=== PATIENT | male | born 1965 | race Caucasian/White ===

== ENCOUNTER 2018-02-23 15:39 | Emergency (ER) | payer SELFPAY ==
[~2018-02-23] VITALS: Ht 165.1 cm; Wt 115.0 kg
[~2018-02-23 15:39] MED LIST: TAMS5CAP PO; VIAG100T PO
[2018-02-23 15:56] VITALS: BP 119/70; PULSE 81; RESP 16; TEMP 98.6; O2SAT 98
[2018-02-23] MEDS ORDERED: SODIUM CHLORIDE 0.9% FLUSH 10 ML FLUSH IV FLUSH PRN (17:30)
[2018-02-23] MEDS ORDERED: KETOROLAC TROMETHAMINE 30 MG/ML (IVP) VIAL IVP ONE (17:30)
--- NOTE | 2018-02-23 17:33 | PD ---
HPI Chief Complaint: Abdominal Pain Time Seen by Provider: 17:29 Travel History International Travel<30 days: No Contact w/Intl Traveler<30days: No Traveled to known affect area: No History of Present Illness HPI Patient is a 52-year-old male presents emergency department for evaluation of left lower quadrant abdominal pain radiating into the left upper quadrant. States is sharp in quality started last night and became fairly constant this afternoon. He states he has a history of diverticulitis but this feels somewhat different. Very painful, no nausea no vomiting no diarrhea no constipation or blood in the stool. PFSH Past Medical History Diminished Hearing: No Social History Alcohol Use: No Tobacco Use: Yes Substance Use: Yes Allergies-Medications (Allergen,Severity, Reaction): Coded Allergies: No Known Allergies (Unverified Adverse Reaction, Unknown, 02/23/18) Reported Meds & Prescriptions Reported Meds & Active Scripts Active Flomax (Tamsulosin HCl) 0.4 Mg Cap 0.8 Mg PO HS Viagra (Sildenafil Citrate) 100 Mg Tab 100 Mg PO DAILY Review of Systems Except as stated in HPI: all other systems reviewed are Neg Physical Exam Narrative GENERAL: Well-developed well-nourished no obvious distress morbidly obese. SKIN: Focused skin assessment warm/dry. HEAD: Atraumatic. Normocephalic. EYES: Pupils equal and round. No scleral icterus. No injection or drainage. ENT: No nasal bleeding or discharge. Mucous membranes pink and moist. NECK: Trachea midline. No JVD. CARDIOVASCULAR: Regular rate and rhythm. No murmur appreciated. RESPIRATORY: No accessory muscle use. Clear to auscultation. Breath sounds equal bilaterally. GASTROINTESTINAL: Abdomen soft, minimally tender in the left lower quadrant, no rebound no percussive tenderness, nondistended. Hepatic and splenic margins not palpable. No CVA tenderness MUSCULOSKELETAL: No obvious deformities. No clubbing. No cyanosis. No edema. NEUROLOGICAL: Awake and alert. No obvious cranial nerve deficits. Motor grossly within normal limits. Normal speech. PSYCHIATRIC: Appropriate mood and affect; insight and judgment normal. Data Data Last Documented VS Vital Signs Date Time Temp Pulse Resp B/P (MAP) Pulse Ox O2 Delivery O2 Flow Rate FiO2 02/23/18 17:49 17 02/23/18 17:49 96 Room Air 02/23/18 15:56 98.6 81 119/70 (86) Orders Orders Complete Blood Count With Diff (02/23/18 17:29) Comprehensive Metabolic Panel (02/23/18 17:29) Lipase (02/23/18 17:29) Urinalysis - C+S If Indicated (02/23/18 17:29) Iv Access Insert/Monitor (02/23/18 17:29) Ecg Monitoring (02/23/18 17:29) Oximetry (02/23/18 17:29) Sodium Chloride 0.9% Flush (Ns Flush) (02/23/18 17:30) Ketorolac Inj (Toradol Inj) (02/23/18 17:30) Ct Abd/Pel W Iv Contrast(Rout) (02/23/18 ) Iohexol 350 Inj (Omnipaque 350 Inj) (02/23/18 19:19) Labs Laboratory Tests Test 02/23/18 17:50 02/23/18 17:55 White Blood Count 6.2 TH/MM3 Red Blood Count 4.90 MIL/MM3 Hemoglobin 14.6 GM/DL Hematocrit 42.3 % Mean Corpuscular Volume 86.4 FL Mean Corpuscular Hemoglobin 29.8 PG Mean Corpuscular Hemoglobin Concent 34.5 % Red Cell Distribution Width 14.2 % Platelet Count 132 TH/MM3 Mean Platelet Volume 8.1 FL Neutrophils (%) (Auto) 60.6 % Lymphocytes (%) (Auto) 25.4 % Monocytes (%) (Auto) 12.9 % Eosinophils (%) (Auto) 0.8 % Basophils (%) (Auto) 0.3 % Neutrophils # (Auto) 3.8 TH/MM3 Lymphocytes # (Auto) 1.6 TH/MM3 Monocytes # (Auto) 0.8 TH/MM3 Eosinophils # (Auto) 0.1 TH/MM3 Basophils # (Auto) 0.0 TH/MM3 CBC Comment DIFF FINAL Differential Comment Blood Urea Nitrogen 11 MG/DL Creatinine 1.23 MG/DL Random Glucose 100 MG/DL Total Protein 7.6 GM/DL Albumin 3.6 GM/DL Calcium Level 8.5 MG/DL Alkaline Phosphatase 91 U/L Aspartate Amino Transf (AST/SGOT) 26 U/L Alanine Aminotransferase (ALT/SGPT) 37 U/L Total Bilirubin 1.4 MG/DL Sodium Level 139 MEQ/L Potassium Level 3.4 MEQ/L Chloride Level 102 MEQ/L Carbon Dioxide Level 29.5 MEQ/L Anion Gap 8 MEQ/L Estimat Glomerular Filtration Rate 62 ML/MIN Lipase 95 U/L Urine Color YELLOW Urine Turbidity CLEAR Urine pH 5.5 Urine Specific [place] 1.031 Urine Protein TRACE mg/dL Urine Glucose (UA) NEG mg/dL Urine Ketones NEG mg/dL Urine Occult Blood NEG Urine Nitrite NEG Urine Bilirubin NEG Urine Urobilinogen LESS THAN 2.0 MG/DL Urine Leukocyte Esterase NEG Urine RBC LESS THAN 1 /hpf Urine WBC 1 /hpf Urine Squamous Epithelial Cells <1 /hpf Urine Mucus FEW /lpf Microscopic Urinalysis Comment CULT NOT INDICATED MDM Medical Decision Making Medical Screen Exam Complete: Yes Emergency Medical Condition: Yes Differential Diagnosis Diverticulitis, acute abdomen unlikely, abdominal abscess, colitis, constipation , Narrative Course Patient room to the emergency department, abdomen fairly benign, given pain medicine, basic labs reassuring. On reassessment the patient states she still having significant pain and feels miserable. Despite this he looks fairly comfortable. Discussed with him CAT scan order, discussed with Dr. Rodriguez at 1900 shift change to follow-up CAT scan and disposition the patient appropriately. Condition: Stable Maciel Serra MD Feb 23, 2018 17:33
[2018-02-23 17:49] VITALS: O2SAT 96
[2018-02-23 18:16] LABS: AUTOMATED NEUTROPHIL # 3.8 TH/MM3 (1.8-7.7); BASOPHIL % 0.3 % (0.0-2.0); EOSINOPHIL # 0.1 TH/MM3 (0-0.4); EOSINOPHIL % 0.8 % (0.0-4.0); HEMATOCRIT 42.3 % (39.0-51.0); HEMOGLOBIN 14.6 GM/DL (13.0-17.0); LYMPH % 25.4 % (9.0-44.0); LYMPHOCYTE # 1.6 TH/MM3 (1.0-4.8); MEAN CELL VOLUME 86.4 FL (80.0-100.0); MEAN CORPUSCULAR HEMOGLOBIN 29.8 PG (27.0-34.0); MEAN CORPUSCULAR HGB CONC 34.5 % (32.0-36.0); MEAN PLATELET VOLUME 8.1 FL (7.0-11.0); MONO % 12.9 % (0.0-8.0); MONOCYTE # 0.8 TH/MM3 (0-0.9); NEUT % 60.6 % (16.0-70.0); PLATELET COUNT 132 TH/MM3 (150-450); RED CELL DISTRIBUTION WIDTH 14.2 % (11.6-17.2); WHITE BLOOD COUNT 6.2 TH/MM3 (4.0-11.0)
[2018-02-23 18:20] LABS: BILIRUBIN, URINE NEG (NEG); BLOOD, URINE NEG (NEG); GLUCOSE,URINE NEG (NEG); KETONE, URINE NEG (NEG); MUCUS URINE FEW /lpf (OCC); NITRITE,URINE NEG (NEG); PH, URINE 5.5 (5.0-8.5); SQUAMOUS EPITHELIAL CELL URINE <1 /hpf (0-5); URINE COLOR YELLOW (YELLW/STRAW); URINE LEUKOCYTE ESTERASE NEG (NEG)
[2018-02-23 18:31] LABS: ALBUMIN 3.6 GM/DL (3.4-5.0); ALT (GPT) 37 U/L (12-78); AST (GOT) 26 U/L (15-37); BICARBONATE 29.5 MEQ/L (21.0-32.0); BLOOD UREA NITROGEN 11 MG/DL (7-18); CALCIUM 8.5 MG/DL (8.5-10.1); CHLORIDE 102 MEQ/L (98-107); CREATININE 1.23 MG/DL (0.60-1.30); GLOMERULAR FILTRATION RATE 62 ML/MIN (>89); GLUCOSE,RANDOM 100 MG/DL (74-106); SODIUM (NA) 139 MEQ/L (136-145)
[2018-02-23 18:33] LABS: ALKALINE PHOSPHATASE 91 U/L (45-117); TOTAL BILIRUBIN ADULT 1.4 MG/DL (0.2-1.0); TOTAL PROTEIN 7.6 GM/DL (6.4-8.2)
--- NOTE | 2018-02-23 19:17 | PD ---
Data Data Last Documented VS Vital Signs Date Time Temp Pulse Resp B/P (MAP) Pulse Ox O2 Delivery O2 Flow Rate FiO2 02/23/18 17:49 17 02/23/18 17:49 96 Room Air 02/23/18 15:56 98.6 81 119/70 (86) Orders Orders Complete Blood Count With Diff (02/23/18 17:29) Comprehensive Metabolic Panel (02/23/18 17:29) Lipase (02/23/18 17:29) Urinalysis - C+S If Indicated (02/23/18 17:29) Iv Access Insert/Monitor (02/23/18 17:29) Ecg Monitoring (02/23/18 17:29) Oximetry (02/23/18 17:29) Sodium Chloride 0.9% Flush (Ns Flush) (02/23/18 17:30) Ketorolac Inj (Toradol Inj) (02/23/18 17:30) Ct Abd/Pel W Iv Contrast(Rout) (02/23/18 ) Iohexol 350 Inj (Omnipaque 350 Inj) (02/23/18 19:19) Labs Laboratory Tests Test 02/23/18 17:50 02/23/18 17:55 White Blood Count 6.2 TH/MM3 Red Blood Count 4.90 MIL/MM3 Hemoglobin 14.6 GM/DL Hematocrit 42.3 % Mean Corpuscular Volume 86.4 FL Mean Corpuscular Hemoglobin 29.8 PG Mean Corpuscular Hemoglobin Concent 34.5 % Red Cell Distribution Width 14.2 % Platelet Count 132 TH/MM3 Mean Platelet Volume 8.1 FL Neutrophils (%) (Auto) 60.6 % Lymphocytes (%) (Auto) 25.4 % Monocytes (%) (Auto) 12.9 % Eosinophils (%) (Auto) 0.8 % Basophils (%) (Auto) 0.3 % Neutrophils # (Auto) 3.8 TH/MM3 Lymphocytes # (Auto) 1.6 TH/MM3 Monocytes # (Auto) 0.8 TH/MM3 Eosinophils # (Auto) 0.1 TH/MM3 Basophils # (Auto) 0.0 TH/MM3 CBC Comment DIFF FINAL Differential Comment Blood Urea Nitrogen 11 MG/DL Creatinine 1.23 MG/DL Random Glucose 100 MG/DL Total Protein 7.6 GM/DL Albumin 3.6 GM/DL Calcium Level 8.5 MG/DL Alkaline Phosphatase 91 U/L Aspartate Amino Transf (AST/SGOT) 26 U/L Alanine Aminotransferase (ALT/SGPT) 37 U/L Total Bilirubin 1.4 MG/DL Sodium Level 139 MEQ/L Potassium Level 3.4 MEQ/L Chloride Level 102 MEQ/L Carbon Dioxide Level 29.5 MEQ/L Anion Gap 8 MEQ/L Estimat Glomerular Filtration Rate 62 ML/MIN Lipase 95 U/L Urine Color YELLOW Urine Turbidity CLEAR Urine pH 5.5 Urine Specific [place] 1.031 Urine Protein TRACE mg/dL Urine Glucose (UA) NEG mg/dL Urine Ketones NEG mg/dL Urine Occult Blood NEG Urine Nitrite NEG Urine Bilirubin NEG Urine Urobilinogen LESS THAN 2.0 MG/DL Urine Leukocyte Esterase NEG Urine RBC LESS THAN 1 /hpf Urine WBC 1 /hpf Urine Squamous Epithelial Cells <1 /hpf Urine Mucus FEW /lpf Microscopic Urinalysis Comment CULT NOT INDICATED MDM Medical Record Reviewed: Yes Supervised Visit with SHANI: No Narrative Course During the course of the patient's emergency department visit, the patient's history, examination, and differential diagnosis were reviewed with the patient. The patient was placed on a manager cardiac cath with oximetry and frequent blood pressure monitoring. The patient had IV access obtained and blood work sent for analysis. The patient's case was checked out to me by . The patient was initially provided Toradol 30 mg IV for pain. The patient's laboratory studies were reviewed and remarkable for white count of 6.2, hemoglobin 14.6, platelets 132 and a patient with a history of mild thrombocytopenia in the past, monocytosis at 12.9, CMP is remarkable for potassium of 3.4, GFR 62, total bilirubin 1.4, lipase 95. Urinalysis is unremarkable. Radiology studies were reviewed and remarkable fo a CT scan of the abdomen and pelvis that shows mild diffuse fatty infiltration of the liver, scattered uncomplicated colonic diverticulosis, no evidence of appendicitis, renal cysts, degenerative changes throughout the thoracolumbar spine. The patient has no listed primary care physician, the patient was given information regarding the [facility] for follow-up. The patient was instructed to follow-up with the [facility] in 3 days for reexamination for improvement. The patient is resting comfortably and feels better, is alert and in no distress. The patient's results and examination findings were discussed with the patient. The repeat examination is unremarkable and benign. The history, exam, diagnostic testing, and current condition do not suggest any significant pathology to warrant further testing, continued ED treatment, admission, or surgical evaluation at this point. The vital signs have been stable. The patient does not have uncontrollable pain, intractable vomiting, or other significant symptoms. The patient's condition is stable and appropriate for discharge. The patient will pursue further outpatient evaluation with a primary care physician or other designated or consulting physician as indicated in the discharge instructions. The patient is instructed to report back to the emergency department immediately for reexamination in the mean time if he develops any new or worsening signs or symptoms. The patient expressed understanding and was agreeable with this plan. Diagnosis Primary Impression: Abdominal pain Qualified Codes: R10.32 - Left lower quadrant pain Referrals: [facility] 3 days Patient Instructions: Abdominal Pain (ED), General Instructions Med/Other Pt SpecificInfo: Prescription(s) given Scripts Naproxen DR (EC-Naprosyn) 500 Mg Tabdr 500 MG PO BID Y for PAIN GREATER THAN 5, #10 TAB 0 Refills Prov: Jade Rodriguez MD 02/23/18 Disposition: 01 DISCHARGE HOME Condition: Stable Jade Rodriguez MD Feb 23, 2018 19:17
[2018-02-23] MEDS ORDERED: IOHEXOL 350 MG/ML 10 ML VIAL (for RAD DIAG) IVCONTRAST ONE (19:19)
--- NOTE | 2018-02-23 19:30 | RADRPT ---
EXAM DATE: 02/23/2018 7:23 PM EDT AGE/SEX: 52 years / Male INDICATIONS: Right lower quadrant pain radiating to umbilicus. CLINICAL DATA: This is the patient's initial encounter. Patient reports that signs and symptoms have been present for 1 day and indicates a pain score of 7/10. MEDICAL/SURGICAL HISTORY: None. None. ORAL CONTRAST: No oral contrast ingested. RADIATION DOSE: 10.29 CTDI (mGy) COMPARISON: No prior [facility] exams available for comparison. TECHNIQUE: Multiple contiguous axial images were obtained through the abdomen and pelvis following b olus infusion of 95 ml Omnipaque 350 (iohexol) nonionic water-soluble contrast as a single exam dos e. No oral contrast ingested. Using automated exposure control and adjustment of the mA and/or kV ac cording to patient size, the radiation dose was kept as low as reasonably achievable to obtain optima l diagnostic quality images. FINDINGS: Lower Lungs: The visualized lower lungs are clear. Liver: Mild diffuse fatty infiltration of the liver is noted. No focal mass is noted. There is no dil ation of the biliary tree. Spleen: Homogeneous density without enlargement. Pancreas: Unremarkable without mass or calcification. Kidneys: Normal in size and shape. No evidence of mass or hydronephrosis. Bilateral renal cysts are noted with the largest on the right measuring 2.2 cm and the largest on the left measuring 1.9 cm. Adrenal Glands: Unremarkable. Aorta: The aorta and proximal iliac vessels are grossly unremarkable without aneurysmal dilation. Bowel/Mesentery: Scattered uncomplicated colonic diverticulosis is noted. No acute diverticulitis is noted.Appendix is normal. Abdominal Wall: Intact. Retroperitoneum: No evidence of adenopathy in the retrocrural, para-aortic, or deep pelvic regions. Bladder: Contours are smooth. Reproductive Organs: No abnormal masses or calcifications seen. Inguinal: The inguinal region is unremarkable without evidence of adenopathy. Bony Structures: Degenerative changes are noted throughout the thoracolumbar spine. CONCLUSION: 1. Mild diffuse fatty infiltration of the liver. 2. Scattered uncomplicated colonic diverticulosis. 3. No CT evidence of acute appendicitis. 4. Follow renal cysts. 5. Degenerative changes throughout the thoracolumbar spine. Electronically signed by: Maciel Mcginnis MD 02/23/2018 7:29 PM EDT
[2018-02-23] MEDS ORDERED: NAPR-810 PO (20:16)
== END 2018-02-23 21:15 | disposition home or self-care (01) ==
LOC: NEPC 15:39
DX: K57.30 Diverticulosis of large intestine without perforation or abscess without bleeding (principal); K76.0 Fatty (change of) liver, not elsewhere classified; D69.6 Thrombocytopenia, unspecified; N28.1 Cyst of kidney, acquired; M51.35 Other intervertebral disc degeneration, thoracolumbar region; Z72.0 Tobacco use; Z79.899 Other long term (current) drug therapy
CPT/HCPCS: 74177; 80053; 81001; 83690; 85025; 96374; 99284; J1885; Q9967